=== PATIENT | male | born 1995 | race Caucasian/White ===

== ENCOUNTER 2018-06-13 19:32 | Inpatient (IN) | payer MEDICAID ==
--- NOTE | 2018-06-13 20:22 | ED ---
Psychiatric Complaint - HPI Summary HPI Summary: This patient is a 22 year old male presenting to the emergency department with a chief complaint of SI and depression. He states he is not taking his medication. The patient slipped on ice today and hit his back but states the pain is resolving. He denies any plan to commit suicide but he states he thinks about it often. He states his medications made him aggressive and caused auditory hallucinations. He has not seen a hazardous waste remover since he was 14 years old. - History Of Current Complaint Chief Complaint: EDMentalHealth Time Seen by Provider: 06/13/18 20:06 Hx Obtained From: Patient Onset/Duration: Still Present Timing: Constant Severity Initially: Moderate Severity Currently: Moderate Character: Depressed Related History: Positive For: Prior Psychiatric Issues Has Suicidal: Reports: Thoughts. Denies: With A Plan, Demonstrates Gesture - Allergies/Home Medications Allergies/Adverse Reactions: Allergies Allergy/AdvReac Type Severity Reaction Status Date / Time No Known Allergies Allergy Verified 06/13/18 19:38 Home Medications: Home Medications NK [No Home Medications Reported] 06/13/18 [History Confirmed 06/13/18] PMH/Surg Hx/FS Hx/Imm Hx Endocrine/Hematology History: Denies: Hx Blood Disorders, Hx Diabetes Respiratory History: Denies: Hx Pleural Effusion, Hx Pneumonia, Hx Pulmonary Edema Neurological History: Denies: Hx Transient Ischemic Attacks (TIA), Hx CVP Psychiatric History: Reports: Hx Anxiety, Hx Depression Infectious Disease History: No Infectious Disease History: Denies: Traveled Outside the [place] in Last 30 Days - Family History Known Family History: Positive: Other - mother is obese , Non-Contributory - Social History Occupation: Employed Full-time - [place] Lives: With Family Alcohol Use: Rare Hx Substance Use: No Substance Use Type: Reports: None Hx Tobacco Use: No Smoking Status (MU): Never Smoked Tobacco Review of Systems Positive: Other - back pain Positive: Other - SI All Other Systems Reviewed And Are Negative: Yes Physical Exam - Summary Physical Exam Summary: Appearance: obese, no pain distress Skin: warm, dry, reflects adequate perfusion Head/face: normal Eyes: EOMI, MOSES ENT: normal Neck: supple, non-tender Respiratory: CTA, breath sounds present Cardiovascular: RRR, pulses symmetrical Abdomen: non-tender, soft Musculoskeletal: TTP over the L spine, strength/ROM intact Neuro: normal, sensory motor intact, A&Ox3 Psych: depressed affect Triage Information Reviewed: Yes Vital Signs On Initial Exam: Initial Vitals Temp Pulse Resp BP Pulse Ox 98.3 F 90 18 144/100 97 06/13/18 19:37 06/13/18 19:37 06/13/18 19:37 06/13/18 19:37 06/13/18 19:37 Vital Signs Reviewed: Yes Diagnostics - Vital Signs Vital Signs Temp Pulse Resp BP Pulse Ox 06/13/18 19:37 98.3 F 90 18 144/100 97 - Laboratory Result Diagrams: 06/13/18 21:41 06/13/18 21:41 Lab Statement: Any lab studies that have been ordered have been reviewed, and results considered in the medical decision making process. Course/Dx - Course Assessment/Plan: This patient will be signed out to Dr. Valentine awaiting MHE. - Differential Dx/Clinical Impression Differential Diagnosis/HQI/PQRI: Positive: Anxiety, Depression Provider Diagnosis: Unspecified mood [affective] disorder, Depressed Discharge - Sign-Out/Discharge Documenting (check all that apply): Sign-Out Patient Signing out patient TO: Lance Valentine All imaging exams completed and their final reports reviewed: No Studies Patient Received Moderate/Deep Sedation with Procedure: No - Discharge Plan Condition: Stable [place] [place] Disposition and Condition Condition: STABLE Disposition: [place] [facility] [place] Attestation Statements Document Initiated by Pietro: Yes Documenting Scribe: Fred Conrad Provider For Whom Scribe is Documenting (Include Credential): Jamal Rosen MD Scribe Attestation: Fred Barrera , scribed for Jamal Rosen MD on 06/16/18 at 2105. Scribe Documentation Reviewed: Yes Provider Attestation: The documentation as recorded by the Fred gayle accurately reflects the service I personally performed and the decisions made by Jamal hayden MD Status of Scribe Document: Viewed
[2018-06-13 20:40] LABS: Urine Appearance Cloudy; Urine Bacteria Absent (Absent); Urine Bilirubin Negative (Negative); Urine Blood 1+ (Negative); Urine Color Yellow; Urine Glucose Negative (Negative); Urine Ketones Negative (Negative); Urine Nitrite Negative (Negative); Urine Protein 2+(100 mg/dL) (Negative); Urine Red Blood Cell 1+(3-5/hpf) (Absent); Urine Specific Gravity 1.027 (1.010-1.030); Urine Squamous Epithelial Cell Present (Absent); Urine Urobilinogen Negative (Negative); Urine White Blood Cell 2+(11-20/hpf) (Absent)
[2018-06-13 20:53] LABS: Barbiturates Urine Screen None Detected (None Detect); Benzodiazepine Urine Screen None Detected (None Detect); Urine Cannabinoids Screen None Detected (None Detect)
[2018-06-13 22:01] LABS: ABS Basophils 0.1 10^3/ul (0-0.2); ABS Eosinophils 0.1 10^3/ul (0-0.6); ABS Lymphocytes 2.7 10^3/ul (1.0-4.8); ABS Monocytes 0.6 10^3/ul (0-0.8); ABS Neutrophils 6.7 10^3/ul (1.5-7.7); ABS Nucleated RBC 0 10^3/ul; Eosinophil % 1.2 %; Hematocrit 46 % (42-52); Hemoglobin 15.9 g/dl (14.0-18.0); Lymphocyte % 26.7 %; Mean Corpuscular HGB Conc 35 g/dl (31-36); Mean Corpuscular Hemoglobin 30 pg (27-31); Mean Corpuscular Volume 86 fL (80-94); Mean Platelet Volume 8.2 fL (7.4-10.4); Nucleated Red Blood Cells % 0.1; Platelet Count 254 10^3/ul (150-450); Red Blood Count 5.35 10^6/ul (4.00-5.40); Red Cell Distribution Width 14 % (10.5-15); White Blood Count 10.1 10^3/ul (3.5-10.8)
[2018-06-13 22:03] LABS: ALT 72 U/L (7-52); AST 45 U/L (13-39); Albumin 4.3 g/dL (3.2-5.2); Albumin/Globulin Ratio 1.2 (1-3); Alkaline Phosphatase 44 U/L (34-104); Anion Gap 5 mmol/L (2-11); BUN/Creatinine Ratio 12.3 (8-20); Blood Urea Nitrogen 10 mg/dL (6-24); CO2 Carbon Dioxide 28 mmol/L (22-32); Calcium 9.6 mg/dL (8.6-10.3); Chloride 106 mmol/L (101-111); EGFR African American 141.7 (>60); EGFR Non-African American 117.1 (>60); Globulin 3.5 g/dL (2-4); Glucose 89 mg/dL (70-100); Potassium 3.6 mmol/L (3.5-5.0); Sodium 139 mmol/L (135-145); Total Protein 7.8 g/dL (6.4-8.9)
[2018-06-13 22:07] LABS: Acetaminophen < 15 mcg/mL; Alcohol < 10 mg/dL (<10); Salicylate < 2.50 mg/dL (<30)
[2018-06-13 22:23] LABS: TSH (Thyroid Stimulating Horm) 1.52 mcIU/mL (0.34-5.60)
--- NOTE | 2018-06-13 22:30 | ED ---
Progress - Progress Note Progress Note: RECEIVING SIGN OUT FROM DR. BLEVINS AT SHIFT CHANGE PENDING MHE. Course/Dx - Course Course Of Treatment: RECEIVING SIGN OUT FROM DR. BLEVINS AT SHIFT CHANGE PENDING MHE. Patient is medically clear for MHE at 2256. At 0129: Per evalutor: Pt will be admitted to [facility], approved by Dr. Du, psych. Dx: mood disorder, NOS. - Diagnoses Provider Diagnoses: Unspecified mood [affective] disorder Discharge - Sign-Out/Discharge Documenting (check all that apply): Patient Departure - ADMIT U, Receiving Sign-Out Receiving patient FROM: Jamal Blevins - pending MHE - Discharge Plan Condition: Fair [place] [place]: No Primary Care Phys,NOPCP [Primary Care Provider] - - Billing Disposition and Condition Condition: FAIR [place] [facility] [place] Attestation Statements Document Initiated by Scribe: Yes Documenting Scribe: Angus Luong Provider For Whom Scribe is Documenting (Include Credential): Dr. Lance Valentine MD Scribe Attestation: Angus Barrera scribed for Dr. Lance Valentine MD on 06/14/18 at 0516. Scribe Documentation Reviewed: Yes Provider Attestation: The documentation as recorded by the Angus gayle accurately reflects the service I personally performed and the decisions made by me, Dr. Lance Valentine MD Status of Scribe Document: Viewed
[2018-06-14] MEDS ORDERED: Melatonin 3 MG TAB PO ONE (02:19)
[2018-06-14] MEDS ORDERED: Acetaminophen TAB* 325 MG PO PRN (10:26)
[2018-06-14] MEDS ORDERED: Al Hydrox/Mg Hydrox/Simet LIQ* 30 ML UDC PO PRN (10:26)
[2018-06-14] MEDS ORDERED: hydrOXYzine HCL TAB* 50 MG PO PRN (10:27)
--- NOTE | 2018-06-14 10:41 | PN ---
ED Flex Patient Progress Note Date of Service: 06/14/18 Subjective: 22 y.o. obese male with a history of behavioral problems brought in by police after being found in the [place] outside of his mother's home, shivering and complaining of SI. Patient now demanding to leave. Objective: obese male in scrubs; depressed and unable to contract for safety Assessment: Unspecified Depressive DO Plan: Will admit to adult BSU on involuntary 9.39 legal status. Vital Signs Temp Pulse Resp BP Pulse Ox 98.3 F 103 16 151/55 100 06/13/18 23:24 06/13/18 23:24 06/13/18 23:24 06/13/18 23:24 06/13/18 23:24 Lab Results - Entire Visit 06/13/18 06/13/18 06/13/18 21:41 21:41 20:00 WBC 10.1 RBC 5.35 Hgb 15.9 Hct 46 MCV 86 MCH 30 MCHC 35 RDW 14 Plt Count 254 MPV 8.2 Neut % (Auto) 66.0 Lymph % (Auto) 26.7 [place] % (Auto) 5.5 Eos % (Auto) 1.2 Baso % (Auto) 0.6 Absolute Neuts (auto) 6.7 Absolute Lymphs (auto) 2.7 Absolute Monos (auto) 0.6 Absolute Eos (auto) 0.1 Absolute Basos (auto) 0.1 Absolute Nucleated RBC 0 Nucleated RBC % 0.1 Sodium 139 Potassium 3.6 Chloride 106 Carbon Dioxide 28 Anion Gap 5 BUN 10 Creatinine 0.81 Est GFR ( Amer) 141.7 Est GFR (Non-Af Amer) 117.1 BUN/Creatinine Ratio 12.3 Glucose 89 Calcium 9.6 Total Bilirubin 0.40 AST 45 H ALT 72 H Alkaline Phosphatase 44 Total Protein 7.8 Albumin 4.3 Globulin 3.5 Albumin/Globulin Ratio 1.2 TSH 1.52 Urine Color Urine Appearance Urine pH Ur Specific Montague Urine Protein Urine Ketones Urine Blood Urine Nitrate Urine Bilirubin Urine Urobilinogen Ur Leukocyte Esterase Urine WBC (Auto) Urine RBC (Auto) Ur Squamous Epith Cells Urine Bacteria Hyaline Casts Urine Glucose Salicylates < 2.50 Urine Opiates Screen None detected Acetaminophen < 15 Ur Barbiturates Screen None detected Ur Phencyclidine Scrn None detected Ur Amphetamines Screen None detected U Benzodiazepines Scrn None detected Urine Cocaine Screen None detected U Cannabinoids Screen None detected Serum Alcohol < 10 06/13/18 20:00 WBC RBC Hgb Hct MCV MCH MCHC RDW Plt Count MPV Neut % (Auto) Lymph % (Auto) [place] % (Auto) Eos % (Auto) Baso % (Auto) Absolute Neuts (auto) Absolute Lymphs (auto) Absolute Monos (auto) Absolute Eos (auto) Absolute Basos (auto) Absolute Nucleated RBC Nucleated RBC % Sodium Potassium Chloride Carbon Dioxide Anion Gap BUN Creatinine Est GFR ( Amer) Est GFR (Non-Af Amer) BUN/Creatinine Ratio Glucose Calcium Total Bilirubin AST ALT Alkaline Phosphatase Total Protein Albumin Globulin Albumin/Globulin Ratio TSH Urine Color Yellow Urine Appearance Cloudy Urine pH 6.0 Ur Specific Montague 1.027 Urine Protein 2+(100 mg/dl) A Urine Ketones Negative Urine Blood 1+ A Urine Nitrate Negative Urine Bilirubin Negative Urine Urobilinogen Negative Ur Leukocyte Esterase Trace A Urine WBC (Auto) 2+(11-20/hpf) A Urine RBC (Auto) 1+(3-5/hpf) A Ur Squamous Epith Cells Present A Urine Bacteria Absent Hyaline Casts Present A Urine Glucose Negative Salicylates Urine Opiates Screen Acetaminophen Ur Barbiturates Screen Ur Phencyclidine Scrn Ur Amphetamines Screen U Benzodiazepines Scrn Urine Cocaine Screen U Cannabinoids Screen Serum Alcohol
--- NOTE | 2018-06-14 13:41 | ED ---
Progress - Progress Note Progress Note: Patient will be signed out to Dr. Clarke Polo via Dr. Lance Valentine, pending MH transfer, upon shift change on 06/14/2018 at 0700. - Consult/PCP Time Called: 23:05 Course/Dx - Course Course Of Treatment: Patient will be signed out to Dr. Clarke Polo via Dr. Lance Valentine, pending MH transfer, upon shift change on 06/14/2018 at 0700. - Diagnoses Provider Diagnoses: Unspecified mood [affective] disorder - Provider Notifications Discussed Care Of Patient With: Ernst Camarillo Time Discussed With Above Provider: 13:38 Instructed by Provider To: Other - accepts patient for admission. Discharge - Sign-Out/Discharge Documenting (check all that apply): Patient Departure - ADMIT, Sign-Out Patient - EHMKE Signing out patient TO: Ernst Camarillo Receiving patient FROM: Clarke Polo - Discharge Plan Condition: Stable Disposition: [place]AT[place] [place] Referrals: No Primary Care Phys,NOPCP [Primary Care Provider] - - Attestation Statements Document Initiated by Scribe: Yes Documenting Scribe: Lui Rice Provider For Whom Scribe is Documenting (Include Credential): Clarke Polo MD Scribe Attestation: Lui Barrera, scribed for Clarke Polo MD on 06/14/18 at 1341. Status of Scribe Document: Ready Attestations Scribe Attestation: Lui Rice User Type: Provider Provider Attestation: Dr. Christ Barrera personally performed the services described in this documentation as scribed in my presence and it is both accurate and complete.
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
[2018-06-16] MEDS: Melatonin 3 MG TAB PO SCH ×2 (02:21→20:07)
[2018-06-16 11:26] VITALS: BP 147/88
--- NOTE | 2018-06-16 13:08 | PN ---
Subjective - Subjective Date of Service: 06/16/18 Service Type: 66637 Hosp care 25 min moderate complexity Subjective: Patient is sitting in milieu, pleasant upon approach. He reports much relief in being connected with health insurance and being able to obtain health care. He states he has been avoiding obtaining services due to overwhelming nature of such. He reports motivation to move into his own apartment with the assistance of DSS until he is able to be self sufficient. He goes on to explain his father 's untimely due to suicide when James was 1yo. He states that recently he identified that he does not want to hurt loved ones by doing the same. He agrees to referral for outpatient counseling. He is notified of elevated BPs and declines medication. He declines need for antidepressants and states "I gotta stop avoiding and just do it!" Objective - Appearance Appearance: Obese Dysmorphic Features: Yes Hygiene: Normal Grooming: Fairly Well Kept - Behavior Psychomotor Activities: Normal Exhibits Abnormal Movement: No - Attitude and Relatedness Attitude and Relatedness: Cooperative Eye Contact: Good - Speech Quality: Unpressured Latencies: Normal Quantity: Appropriate - Mood Patient's Decription of Mood: "Good" - Affect Observed Affect: Good Affect Consistent with: Euthymia - Thought Process Patient's Thought Process: Coherent Plan - Plan Treatment Plan: Name: JAMES MADERA Birthdate: 1995 [id number] [facility] acute intensive psychiatric treatment. may decrease to q30min obs, allow staff pass and computer use. no medications. discharge tentative for 06/17/18. Medications: Current Medications Acetaminophen (Tylenol Tab*) 650 mg PO Q4H PRN PRN Reason: for pain; or Temp >101 F Al Hydrox/Mg Hydrox/Simethicone (Maalox Plus*) 30 ml PO Q4H PRN PRN Reason: INDIGESTION Hydroxyzine HCl (Atarax Tab*) 50 mg PO Q6H PRN PRN Reason: ANXIETY Melatonin (Melatonin) 3 mg PO BEDTIME [facility]; Protocol Last Admin: 06/16/18 02:21 Dose: 3 mg - Discharge Plan Discharge Plan: Outpatient Follow Up Outpatient Program: [facility]
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
== END 2018-06-17 13:05 | disposition home or self-care (01) | DRG 881 ==
LOC: ED 19:32 → BSU 06-14 10:26
PROVIDERS: ADMIT Psychiatry & Neurology Psychiatry; ATTEND Psychiatry & Neurology Psychiatry
DX: F32.9 Major depressive disorder, single episode, unspecified (principal); R45.851 Suicidal ideations; E66.01 Morbid (severe) obesity due to excess calories; I10 Essential (primary) hypertension; F41.9 Anxiety disorder, unspecified; Z83.49 Family history of other endocrine, nutritional and metabolic diseases; Z68.43 Body mass index [BMI] 50.0-59.9, adult; Z91.5 Personal history of self-harm
CPT/HCPCS: 36415; 72110; 80053; 80061; 80307; 80320; 80329; 81003; 81015; 83036; 84443; 85025; 87086; 99222; 99232; 99284; G0480